=== PATIENT | male | born 1955 | race Caucasian/White ===

== ENCOUNTER 2019-01-07 08:06 | Outpatient (CLI) | payer OTHER | END 2019-01-07 08:16 | disposition home or self-care (01) | LOC: LAB 08:06 | DX: R31.0 Gross hematuria (principal) ==

== ENCOUNTER 2019-01-09 07:24 | Outpatient (CLI) | payer OTHER | END 2019-01-09 07:32 | disposition home or self-care (01) | LOC: TOM 07:24 | DX: N20.0 Calculus of kidney (principal); R31.0 Gross hematuria | CPT/HCPCS: 74178; Q9965 ==

== ENCOUNTER 2019-02-14 05:20 | Day surgery (SDC) | payer OTHER ==
[~2019-02-14 05:20] MED LIST: CYCLOBENZAPRINE10 MG
== END 2019-02-14 14:55 | disposition home or self-care (01) ==
LOC: CIR.AMB 05:20
DX: N20.2 Calculus of kidney with calculus of ureter (principal); R31.0 Gross hematuria

== ENCOUNTER 2019-03-07 05:30 | Day surgery (SDC) | payer OTHER ==
[~2019-03-07 05:30] MED LIST changes: +MACRODANTIN25 MG PO
== END 2019-03-07 17:15 | disposition home or self-care (01) ==
LOC: CIR.AMB 05:30
DX: N20.0 Calculus of kidney (principal)

== ENCOUNTER 2021-07-23 07:09 | Emergency (ER) | payer OTHER ==
[~2021-07-23] VITALS: Ht 175.3 cm; Wt 86.2 kg
== END 2021-07-23 09:56 | disposition home or self-care (01) ==
LOC: ER 07:09
DX: M19.90 Unspecified osteoarthritis, unspecified site (principal)

== ENCOUNTER 2021-09-09 06:02 | Day surgery (SDC) | payer OTHER ==
[~2021-09-09] VITALS: Ht 172.7 cm; Wt 85.7 kg
== END 2021-09-09 21:00 | disposition home or self-care (01) ==
LOC: CIR.AMB 06:02
PROVIDERS: ATTEND Urology
DX: N20.1 Calculus of ureter (principal); R31.0 Gross hematuria; Z20.822 Contact with and (suspected) exposure to COVID-19; N13.5 Crossing vessel and stricture of ureter without hydronephrosis

== ENCOUNTER 2021-11-25 05:50 | Day surgery (SDC) | payer OTHER ==
[~2021-11-25] VITALS: Ht 172.7 cm; Wt 83.5 kg
[~2021-11-25 05:50] MED LIST changes: +AMITRIPTYLINE H10 MG PO
== END 2021-11-25 15:15 | disposition home or self-care (01) ==
LOC: CIR.AMB 05:50
PROVIDERS: ATTEND Urology
DX: N20.1 Calculus of ureter (principal); Z20.822 Contact with and (suspected) exposure to COVID-19

== ENCOUNTER 2024-01-31 07:07 | Outpatient (CLI) | payer OTHER | END 2024-01-31 07:25 | disposition home or self-care (01) | LOC: TOM 07:07 | PROVIDERS: ATTEND Urology | DX: N20.1 Calculus of ureter (principal) ==

== ENCOUNTER 2024-07-09 06:20 | Inpatient (IN) | payer OTHER ==
[~2024-07-09] VITALS: Ht 175.3 cm; Wt 85.7 kg
--- NOTE | 2024-07-09 06:35 | NUR ---
PTE ALERTA Y ORIENTADO X3 QUIEN REFIERE VENIR YA QUE EL MISMO PRESENTA FIEBRE Y ESCALOFRIOS. CLARY VERBALIZA TENER INFECCION DE ORINA DESDE JUEVES DE LA SEMANA PASADA ESTAR EN ANTIBIOTICO Y NO RESULTARLE EFECTIVOS
[2024-07-09] MEDS ORDERED: KETOROLAC TROMETHAMINE 60 MG VIAL IM ONE (09:00)
[2024-07-09] MEDS ORDERED: ONDANSETRON HCL 2 MG/ML VIAL IV ONE (09:00)
--- NOTE | 2024-07-09 09:25 | NUR ---
SE RECIBE PACIENTE SOBRE TRATAMIENTO EL MISMO REFIERE ENTENDER Y ACEPTAR , SE CANALIZA BAJO MEDIDAS ASEPTICAS.PACIENTE ESPERA DE RESULTADOS .
[2024-07-09 09:41] LABS: HEMATOCRIT 44.2 % (39.0-48.0); HEMOGLOBIN 14.7 g/dL (13-16.00); MEAN CELL VOLUME 94.7 fL (80.0-100.00); MEAN CORPUSCULAR HEMOGLOBIN 31.6 pg (27.00-32.0); MEAN CORPUSCULAR HGB CONC 33.3 g/dl (32.0-36.0); PLATELET COUNT 258 K/uL (150-450); RED BLOOD COUNT 4.67 M/uL (4.00-6.00); RED CELL DISTRIBUTION WIDTH 13.1 % (11.5-14.5)
[2024-07-09 09:50] LABS: PH,URINE 5.5 (5.0-8.0); URINE APPEARANCE Clear; URINE BILIRRUBIN Negative (NEGATIVE); URINE BLOOD NHT; URINE COLOR Yellow; URINE GLUCOSE Negative (NEGATIVE); URINE KETONE Negative (NEGATIVE); URINE LEUKOCYTE Trace; URINE NITRATE Negative; URINE PROTEIN 30 (NEGATIVE); URINE UROBILINOGEN 0.2 E.U./dl
[2024-07-09 09:55] LABS: URINE BACTERIA 4.8 uL (0.0-1933); URINE EPITHELIAL CELLS 4.5 uL (0.0-38.8); URINE WBC 32.4 uL (0.0-23.2)
[2024-07-09 10:05] LABS: URINE CAST 0.88 uL (0.0-1.40)
[2024-07-09 10:12] LABS: ALBUMIN 2.9 gm/dL (3.4-5.0); BILIRUBIN TOTAL 1.09 mg/dL (0.3-1.2); CALCIUM 8.9 mg/dL (8.5-10.1); CREATININE SERUM 1.61 mg/dL (0.70-1.30); GFR 42.76; GLOBULINA 3.9 G/DL (2.4-3.5); POTASSIUM 3.98 mEq/L (3.5-5.1); TOTAL PROTEIN 6.8 gm/dL (6.4-8.2)
[2024-07-09] MEDS ORDERED: 0.9 % SODIUM CHLORIDE 1,000 ML IV ONE (10:45)
[2024-07-09] MEDS ORDERED: FAMOTIDINE/PF 20 MG in 0.9 % SODIUM CHLORIDE 8 ML IV PUSH SCH (18:36)
[2024-07-09] MEDS ORDERED: CEFTRIAXONE SODIUM 2,000 MG in 0.9 % SODIUM CHLORIDE 100 ML IV SCH (18:36)
[2024-07-09] MEDS ORDERED: TAMSULOSIN HCL 0.4 MG CAP PO SCH (18:40)
[2024-07-09] MEDS ORDERED: KETOROLAC TROMETHAMINE 15 MG VIAL IU ONE (18:45)
[2024-07-09] MEDS ORDERED: 0.9 % SODIUM CHLORIDE 1,000 ML IV SCH (18:45)
[2024-07-09] MEDS ORDERED: ACETAMINOPHEN 500 MG GEL..CAP PO PRN (18:45)
[2024-07-09] MEDS ORDERED: KETOROLAC TROMETHAMINE 15 MG VIAL IU PRN (18:45)
[2024-07-09] MEDS ORDERED: KETOROLAC TROMETHAMINE 30 MG VIAL IV PRN (19:30)
[2024-07-09 20:49] LABS: INR 1.08; PROTHROMBIN TIME 11.7 SECONDS (9.0-11.5)
[2024-07-10] MEDS ORDERED: CHLORHEXIDINE GLUCONATE 120 ML BOTTLE TOP ONE (02:00)
[2024-07-10 04:50] VITALS: BP 117/54; O2SAT 97
[2024-07-10 08:38] VITALS: BP 142/62; O2SAT 96
[2024-07-10 09:50] LABS: HEMATOCRIT 40.7 % (39.0-48.0); HEMOGLOBIN 13.7 g/dL (13-16.00); MEAN CELL VOLUME 94.7 fL (80.0-100.00); MEAN CORPUSCULAR HEMOGLOBIN 31.8 pg (27.00-32.0); MEAN CORPUSCULAR HGB CONC 33.6 g/dl (32.0-36.0); PLATELET COUNT 212 K/uL (150-450); RED CELL DISTRIBUTION WIDTH 13.1 % (11.5-14.5)
[2024-07-10 10:19] LABS: ERYTHROCYTE SEDIMENTATION RATE 22 mm/hr
[2024-07-10 10:28] LABS: ALBUMIN 2.6 gm/dL (3.4-5.0); BILIRUBIN TOTAL 0.69 mg/dL (0.3-1.2); CALCIUM 8.2 mg/dL (8.5-10.1); CREATININE SERUM 1.05 mg/dL (0.70-1.30); GFR 70.03; GLOBULINA 2.9 G/DL (2.4-3.5); POTASSIUM 4.93 mEq/L (3.5-5.1); TOTAL PROTEIN 5.5 gm/dL (6.4-8.2)
[2024-07-10 10:30] LABS: C-REACTIVE PROTEIN 18.7 MG/DL (0.00-0.29)
[2024-07-10 16:08] VITALS: BP 127/66; O2SAT 94
[2024-07-11 00:30] VITALS: BP 128/72; O2SAT 98
[2024-07-11 08:39] VITALS: BP 154/68; O2SAT 96
[2024-07-11 12:46] LABS: URINE APPEARANCE Clear; URINE BILIRRUBIN Negative (NEGATIVE); URINE BLOOD Small; URINE COLOR Yellow; URINE GLUCOSE Negative (NEGATIVE); URINE KETONE Negative (NEGATIVE); URINE LEUKOCYTE Trace; URINE NITRATE Negative; URINE PROTEIN Negative (NEGATIVE); URINE UROBILINOGEN 0.2 E.U./dl
[2024-07-11 13:00] LABS: URINE EPITHELIAL CELLS 1.5 uL (0.0-38.8); URINE WBC 29.7 uL (0.0-23.2)
[2024-07-11 13:04] LABS: HEMOGLOBIN 14.1 g/dL (13-16.00); MEAN CELL VOLUME 93.1 fL (80.0-100.00); MEAN CORPUSCULAR HGB CONC 34.3 g/dl (32.0-36.0); PLATELET COUNT 253 K/uL (150-450); RED CELL DISTRIBUTION WIDTH 13.5 % (11.5-14.5)
[2024-07-11 13:05] LABS: URINE BACTERIA 3.6 uL (0.0-1933)
[2024-07-11 13:25] LABS: ALBUMIN 2.8 gm/dL (3.4-5.0); BILIRUBIN TOTAL 0.46 mg/dL (0.3-1.2); CALCIUM 8.6 mg/dL (8.5-10.1); CREATININE SERUM 1.06 mg/dL (0.70-1.30); GFR 69.27; GLOBULINA 3.5 G/DL (2.4-3.5); MAGNESIUM 2.1 mg/dL (1.8-2.4); PHOSPHOROUS 2.9 mg/dL (2.5-4.9); POTASSIUM 5.39 mEq/L (3.5-5.1); TOTAL PROTEIN 6.3 gm/dL (6.4-8.2)
[2024-07-11 13:26] LABS: C-REACTIVE PROTEIN 10.7 MG/DL (0.00-0.29)
[2024-07-11 16:29] VITALS: BP 157/63; O2SAT 100
[2024-07-11] MEDS ORDERED: FAMOtidine 20 MG TABLET PO SCH (21:00)
[2024-07-12] VITALS: BP 145/74; O2SAT 96
[2024-07-12 08:36] VITALS: BP 148/77; O2SAT 97
[2024-07-12] MEDS ORDERED: SODIUM POLYSTYRENE SULFONATE 15 G/4 TSP TSP PO NR (11:00)
[2024-07-12 14:41] LABS: HEMATOCRIT 40.5 % (39.0-48.0); HEMOGLOBIN 13.7 g/dL (13-16.00); MEAN CELL VOLUME 94.8 fL (80.0-100.00); MEAN CORPUSCULAR HGB CONC 33.7 g/dl (32.0-36.0); PLATELET COUNT 278 K/uL (150-450); RED BLOOD COUNT 4.28 M/uL (4.00-6.00); RED CELL DISTRIBUTION WIDTH 13.3 % (11.5-14.5)
[2024-07-12 14:45] LABS: ALBUMIN 2.8 gm/dL (3.4-5.0); BILIRUBIN TOTAL 0.34 mg/dL (0.3-1.2); CALCIUM 8.4 mg/dL (8.5-10.1); CREATININE SERUM 1.08 mg/dL (0.70-1.30); GFR 67.79; GLOBULINA 3.5 G/DL (2.4-3.5); POTASSIUM 4.28 mEq/L (3.5-5.1); TOTAL PROTEIN 6.3 gm/dL (6.4-8.2)
[2024-07-12 16:00] VITALS: BP 135/60; O2SAT 96
[2024-07-13] VITALS: BP 130/76; O2SAT 95
[2024-07-13 08:42] VITALS: BP 148/76; O2SAT 98
[2024-07-13 16:00] VITALS: BP 152/76; O2SAT 97
[2024-07-13] MEDS ORDERED: AMINO ACIDS 1 EACH TABLET PO SCH (17:00)
[2024-07-14] VITALS: BP 123/61; O2SAT 97
[2024-07-14 08:00] VITALS: BP 150/75; O2SAT 97
[2024-07-14 16:20] VITALS: BP 127/74; O2SAT 96
[2024-07-14 17:42] LABS: URINE APPEARANCE Clear; URINE BILIRRUBIN Negative (NEGATIVE); URINE BLOOD Large; URINE COLOR Yellow; URINE GLUCOSE Negative (NEGATIVE); URINE KETONE Negative (NEGATIVE); URINE LEUKOCYTE Small; URINE NITRATE Negative; URINE PROTEIN Negative (NEGATIVE); URINE UROBILINOGEN 0.2 E.U./dl
[2024-07-14 18:02] LABS: URINE BACTERIA 79.5 uL (0.0-1933); URINE CAST 0.58 uL (0.0-1.40); URINE EPITHELIAL CELLS 3.7 uL (0.0-38.8); URINE RBC 744.1 uL (0.0-20.8); URINE WBC 79.1 uL (0.0-23.2)
[2024-07-15] VITALS: BP 115/68; O2SAT 96
[2024-07-15 06:51] LABS: HEMATOCRIT 43.6 % (39.0-48.0); HEMOGLOBIN 14.5 g/dL (13-16.00); MEAN CELL VOLUME 94.7 fL (80.0-100.00); MEAN CORPUSCULAR HEMOGLOBIN 31.6 pg (27.00-32.0); MEAN CORPUSCULAR HGB CONC 33.3 g/dl (32.0-36.0); PLATELET COUNT 369 K/uL (150-450); RED BLOOD COUNT 4.61 M/uL (4.00-6.00); RED CELL DISTRIBUTION WIDTH 13.2 % (11.5-14.5)
[2024-07-15 06:52] LABS: ERYTHROCYTE SEDIMENTATION RATE 46 mm/hr
[2024-07-15 07:27] LABS: CALCIUM 8.7 mg/dL (8.5-10.1); CREATININE SERUM 1.12 mg/dL (0.70-1.30); MAGNESIUM 2.4 mg/dL (1.8-2.4); POTASSIUM 4.72 mEq/L (3.5-5.1)
[2024-07-15 07:28] LABS: C-REACTIVE PROTEIN 1.23 MG/DL (0.00-0.29)
[2024-07-15 08:46] VITALS: BP 145/79; O2SAT 96
[2024-07-15 17:32] VITALS: BP 136/61; O2SAT 95
[2024-07-16 16:19] VITALS: BP 153/76; O2SAT 95
[2024-07-17 00:38] VITALS: BP 119/72; O2SAT 99
[2024-07-17 08:41] VITALS: BP 125/68; O2SAT 97
[2024-07-17] MEDS ORDERED: TAMS0.4C PO (08:52)
[2024-07-17] MEDS ORDERED: PRE PROTEIN1 EACH PO (08:52)
== END 2024-07-17 11:55 | disposition home or self-care (01) | DRG 659 ==
LOC: ER 06:22 → SURH 19:31 → SEC-K 19:31 → MEDJ 07-10 02:29 → SURH 07-10 02:40
PROVIDERS: General Practice; Internal Medicine; Internal Medicine Infectious Disease; Urology; ADMIT Internal Medicine; ATTEND Internal Medicine
PROC: BW21YZZ Computerized Tomography (CT Scan) of Abdomen and Pelvis using Other Contrast (ICD-10-PCS; 2024-07-09)
PROC: 0T778DZ Dilation of Left Ureter with Intraluminal Device, Via Natural or Artificial Opening Endoscopic (ICD-10-PCS; principal; 2024-07-10 07:00)
DX: N20.0 Calculus of kidney (principal); A41.9 Sepsis, unspecified organism; N13.1 Hydronephrosis with ureteral stricture, not elsewhere classified; N39.0 Urinary tract infection, site not specified; R65.10 Systemic inflammatory response syndrome (SIRS) of non-infectious origin without acute organ dysfunction; M19.90 Unspecified osteoarthritis, unspecified site; N20.1 Calculus of ureter